=== PATIENT | female | born 1995 ===

== ENCOUNTER 2024-04-14 09:30 | Outpatient (CLI) | payer OTHER, SELFPAY ==
[2024-04-15 09:49] LABS: FSH 102.8 mIU/mL; LH 67.2 mIU/mL
[2024-04-19 21:24] LABS: Testosterone Total 14 ng/dL (2-45)
[2024-04-20 20:18] LABS: Estrogen <25 pg/mL
== END 2024-04-14 09:31 | disposition home or self-care (01) ==
LOC: ANHGOSHLAB 09:34
PROVIDERS: PCP Family Medicine; Visit Provider Nurse Practitioner Family
DX: N91.2 Amenorrhea, unspecified (principal)
CPT/HCPCS: 36415; 82672; 83001; 83002; 84403